=== PATIENT | female | born 1970 | race Caucasian/White ===

== ENCOUNTER → 2017-05-14 | Outpatient (CLI) | payer BC ==
[~2017-05-14] MED LIST: BACTRIM DS TABL1 TAB PO; LISINOPRIL PO; NORVASC; VOLTAREN75 MG PO; ZYVOX PO
--- NOTE | ~2017-05-14 | MY29 ---
[facility] A Service of [facility] RADIOLOGY TEXT RESULTS PATIENT: ZAIRA PITT LOCATION: [facility] : [birth year] UNIT #: [id number] AGE: [address]: Natacha Quinn MD SEX: F ORDER DR: [id number] [facility] [address] [place], [place] [address] [id number] O MR#: [id number] Acc #: [id number] NAME: ZAIRA PITT : 1970 SEX: F STUDY DATE/TIME: 05/14/2017 12:28 UNIT: [facility] ROOM: STUDY DESCRIPTION: MY TAYLOR SCREENING W/ CAD BILAT Attending Physician: Natacha Quinn M.D. Referring Physician: Natacha Quinn M.D. Ordering Physician: Natacha Quinn M.D. Primary Care Physician: Natacha Quinn M.D. MEDICAL IMAGING REPORT This report is preliminary unless electronic signature is present EXAM Digital screening mammogram 05/14/2017 HISTORY 46-year-old woman, no risk elevation. Annual screen. COMPARISON STUDIES Comparison mammograms date to 04/09/2012 with most recent 03/24/2016 Digital imaging of each breast was completed utilizing a two-view examination of each breast in craniocaudal and mediolateral-oblique projections. Review and interpretation of digital mammograms include a second review in conjunction with FDA-approved CAD device. There is a normal parenchymal presentation bilaterally consistent with the patient's age. There are no breast masses imaged and no parenchymal asymmetry is visualized. There are no suspicious microcalcifications and I see no focal architectural disturbance. IMPRESSION Negative screening digital mammogram. One-year followup recommended. Patients over the age of 40 are entered into a reminder system with target due date for the next mammogram. A result letter will also be sent to the patient. BIRADS: 1 Negative ADDENDUM Breast parenchyma is fatty replaced Dictated by... Selvin Villarreal M.D. [facility] A Service of [facility] RADIOLOGY TEXT RESULTS PATIENT: ZAIRA PITT LOCATION: [facility] #: [id number] : [birth year] UNIT #: [id number] AGE: [address]: Natacha Quinn MD SEX: F ORDER DR: THIS IS AN ELECTRONICALLY VERIFIED REPORT Selvin Villarreal M.D. at 05/14/2017 4:06 PM Juan TD: 05/14/2017 15:52 JOB #: [id number] MEDICAL IMAGING REPORT Page 1 of 1 COPY
== END | disposition home or self-care (01) ==
LOC: CWCC 11:45
DX: Z12.31 Encounter for screening mammogram for malignant neoplasm of breast (principal)
CPT/HCPCS: G0202

== ENCOUNTER 2017-07-12 13:41 | Emergency (ER) | payer BC ==
[~2017-07-12] VITALS: Ht 167.6 cm; Wt 101.0 kg
--- NOTE | ~2017-07-12 | CR2 ---
[facility] A Service of [facility] RADIOLOGY TEXT RESULTS PATIENT: ZAIRA PITT LOCATION: [facility] : 70 UNIT #: [id number] AGE: [address]: Ernesto Lynn MD SEX: F ORDER DR: [id number] [place] [id number] E MR#: [id number] Acc #: [id number] NAME: ZAIRA PITT : 1970 SEX: F STUDY DATE/TIME: 07/12/2017 16:02 UNIT: [facility] ROOM: STUDY DESCRIPTION: CR Abdomen Acute Series Attending Physician: Ernesto Lynn M.D. Ordering Physician: Ernesto Lynn M.D. Primary Care Physician: Natacha Quinn M.D. MEDICAL IMAGING REPORT This report is preliminary unless electronic signature is present. EXAM Acute abdominal series, 07/12/2017 INDICATIONS A 46-year-old female with abdominal pain symptoms for several weeks. Intermittent cramping. Hypertension. FINDINGS Frontal chest in upright supine views of the abdomen were performed. Correlation is made with CT 04/16/2012. FINDINGS Cardiac silhouette unremarkable. Vascularity normal. Lungs clear. Presumed upright view of the abdomen demonstrates no free air. Gallbladder is surgically absent. Bowel gas pattern nonobstructive but nonspecific. Calcifications in the pelvis nonspecific as well but likely vascular in nature. Mild lumbar degenerative change. IMPRESSION 1. Negative frontal chest for active disease. 2. No free air. 3. The bowel gas pattern is nonspecific but nonobstructive. No dilated air-filled loops of bowel are seen. There is an air-fluid level within nondilated small bowel in the right upper quadrant which is nonspecific. Moderate stool burden. Dictated by... Ernesto Grant M.D. THIS IS AN ELECTRONICALLY VERIFIED REPORT [facility] A Service of [facility] RADIOLOGY TEXT RESULTS PATIENT: ZAIRA PITT LOCATION: [facility] : 70 UNIT #: [id number] AGE: [address]: Ernesto Lynn MD SEX: F ORDER DR: Ernesto Grant M.D. at 07/12/2017 11:15 PM KAROL/vesna TD: 07/12/2017 18:55 JOB #: [id number] MEDICAL IMAGING REPORT Page 1 of 1
[2017-07-12 15:46] LABS: URINE SOURCE CLEAN CATCH
[2017-07-12 15:48] LABS: URINE APPEARANCE CLEAR; URINE BILIRUBIN NEG (NEG); URINE BLOOD NEG (NEG); URINE COLOR YELLOW; URINE GLUCOSE NEG (NORM); URINE KETONE TRACE (NEG); URINE LEUKOCYTE ESTERASE NEG (NEG); URINE NITRATE NEG (NEG); URINE PH 6.5 (5-8); URINE PROTEIN NEG (NEG); URINE SPECIFIC GRAVITY 1.025 (1.003-1.035); URINE UROBILINOGEN 0.2 MG/DL (NORM)
[2017-07-12 15:52] LABS: MICRO INDICATED? NO
== END 2017-07-12 16:59 | disposition home or self-care (01) ==
LOC: SED 13:41
PROVIDERS: Emergency Medicine
DX: R10.9 Unspecified abdominal pain (principal); I10 Essential (primary) hypertension; M19.90 Unspecified osteoarthritis, unspecified site; Z90.49 Acquired absence of other specified parts of digestive tract; Z79.899 Other long term (current) drug therapy
CPT/HCPCS: 74022; 81003; 84703; 99284